=== PATIENT | female | born 1965 | race Caucasian/White ===

== ENCOUNTER 2020-06-03 13:56 | Observation (INO) ==
[2020-06-03 15:50] LABS: Basophils # 0.1 10*3/uL (0.0-0.2); Basophils % 0.9 % (0.0-0.8); Eosinophils % 0.4 % (0.00-10.9); Hematocrit 30.2 VOL% (35.7-47.0); Hemoglobin 8.9 GM/DL (12.0-16.0); Immature Granulocytes % 0.2 %; Immature Granulocytes Absolute 0.01 #; Lymphocytes # 1.2 10*3/uL (1.4-4.0); Lymphocytes % 20.6 % (21.3-54.2); Mean Corpuscular HGB Conc 29.5 GM/DL (32-36); Mean Corpuscular Volume 76.3 FL (87-102); Mean Platelet Volume 9.3 FL (9.6-12.0); Monocytes % 10.5 % (1.7-12.7); Neutrophils % 67.4 % (38.7-73.9); Platelet Count 285 T/CUMM (130-400); Red Blood Count 3.96 MC/CUMM (3.8-5.5); Red Cell Distribution Width 17.2 % (9.3-17.3); White Blood Count 5.6 T/CUMM (4-12)
[2020-06-03 16:16] LABS: Alanine Aminotransferase 25 U/L (13-56); Albumin 3.2 G/DL (3.4-5.0); Alkaline Phosphatase 88 U/L (45-117); Aspartate Amino Transferase 18 U/L (0-37); Bilirubin,Total < 0.39 MG/DL (0.2-1.0); Blood Urea Nitrogen 12 MG/DL (7-18); Calcium 8.8 MG/DL (8.5-10.1); Estimated Glom Filtration Rate 90 ML/MIN; Glucose 104 MG/DL (74-106); Osmolality,Calculated 276.5 MOS/KG (273-304); Total Protein 7.2 G/DL (6.4-8.3)
[2020-06-03] MEDS ORDERED: ACETAMINOPHEN 325 MG TABLET PO PRN (16:56)
[2020-06-03] MEDS ORDERED: ONDANSETRON 4 MG/2 ML VIAL IV PRN (16:56)
[2020-06-03] MEDS: busPIRone 5 MG TABLET PO SCH (20:15)
[2020-06-03] MEDS: DOCUSATE SODIUM 100 MG CAPSULE PO SCH (20:15)
[2020-06-03] MEDS: rOPINIRole 1 MG TABLET PO SCH (20:15)
[2020-06-03] MEDS: tiZANidine 4 MG TABLET PO SCH (20:15)
[2020-06-03] MEDS: APIXABAN 5 MG TABLET PO SCH (20:15)
[2020-06-03] MEDS: GABAPENTIN 300 MG CAPSULE PO SCH (20:15)
[2020-06-04] MEDS: LEVOTHYROXINE 112 MCG TABLET PO SCH (06:15)
[2020-06-04] MEDS ORDERED: DULoxetine 30 MG CAPSULE PO SCH ×2 (09:00→21:00)
[2020-06-04] MEDS: busPIRone 5 MG TABLET PO SCH ×3 (09:27→20:54)
[2020-06-04] MEDS: PANTOPRAZOLE 40 MG TABLET PO SCH (09:28)
[2020-06-04] MEDS: APIXABAN 5 MG TABLET PO SCH ×2 (09:28→20:55)
[2020-06-04] MEDS: MAGNESIUM OXIDE 400 MG TABLET PO SCH (09:28)
[2020-06-04] MEDS: MULTIVITAMIN (CENTRUM) TABLET PO SCH (09:28)
[2020-06-04] MEDS: DOCUSATE SODIUM 100 MG CAPSULE PO SCH ×2 (09:28→20:54)
[2020-06-04] MEDS: rOPINIRole 1 MG TABLET PO SCH ×3 (09:28→20:54)
[2020-06-04] MEDS: GABAPENTIN 300 MG CAPSULE PO SCH ×2 (09:28→20:55)
[2020-06-04] MEDS ORDERED: DIAZEPAM 5 MG TABLET PO ONE (10:01)
[2020-06-04] MEDS: traMADol 50 MG TABLET PO SCH ×3 (11:17→20:53)
[2020-06-04] MEDS: tiZANidine 4 MG TABLET PO SCH (20:55)
[2020-06-05] MEDS: hydrOXYzine HCL 10 MG TABLET PO PRN ×2 (06:24→10:14)
[2020-06-05] MEDS: LEVOTHYROXINE 112 MCG TABLET PO SCH (06:24)
[2020-06-05] MEDS ORDERED: FUROSEMIDE 20 MG/2 ML VIAL IV ONE (09:06)
[2020-06-05] MEDS: GABAPENTIN 300 MG CAPSULE PO SCH (10:13)
[2020-06-05] MEDS: APIXABAN 5 MG TABLET PO SCH (10:13)
[2020-06-05] MEDS: busPIRone 5 MG TABLET PO SCH ×2 (10:13→16:02)
[2020-06-05] MEDS: traMADol 50 MG TABLET PO SCH ×2 (10:13→16:02)
[2020-06-05] MEDS: DOCUSATE SODIUM 100 MG CAPSULE PO SCH (10:13)
[2020-06-05] MEDS: MULTIVITAMIN (CENTRUM) TABLET PO SCH (10:13)
[2020-06-05] MEDS: MAGNESIUM OXIDE 400 MG TABLET PO SCH (10:14)
[2020-06-05] MEDS: rOPINIRole 1 MG TABLET PO SCH ×2 (10:14→16:02)
[2020-06-05] MEDS: PANTOPRAZOLE 40 MG TABLET PO SCH (10:14)
[2020-06-05 12:20] VITALS: BP 116/66
[2020-06-05] MEDS ORDERED: NEOMYCIN/POLYMYXIN/BACITRACIN OINT 28.4 GM TUBE TOP SCH (12:30)
== END 2020-06-05 16:18 | disposition home or self-care (01) ==
LOC: N.ED 13:56 → N.EDINP 13:56 → N.3E 17:30
PROVIDERS: ADMIT Family Medicine; ATTEND Family Medicine